=== PATIENT | male | born 1970 | race African-American/Black ===

== ENCOUNTER 2016-11-20 11:57 | Emergency (ER) | payer BC ==
[~2016-11-20] VITALS: Ht 198.1 cm; Wt 154.2 kg
--- NOTE | 2016-11-20 12:53 | ED.ADGEN ---
Past Medical History Past Medical History: High Cholesterol Past Surgical History: No Surgical History Alcohol Use: Occasionally Drug Use: None Adult General Chief Complaint Chief Complaint: NEAR SYNCOPE HPI HPI Patient is a 45 year old man, history of hypercholesterolemia, obesity, who presents to the emergency department with multiple complaints. Patient states that he has been experiencing a right-sided headache over the past several days , and a feeling of "like I need to keep checking" nose and cheek on the right because "to make sure they're still there". Patient denies any facial droop, any slurred speech, any vision changes, any focal weakness in the extremities. 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 He denies any vertiginous type symptoms, any nausea or vomiting, any focal weaknesses stated, any chest pain or shortness of breath , any GI or symptoms. He states this lasted for about 10 minutes, and is now fully resolved. He has been taking ibuprofen daily over the past several days, one dose daily for headache pain. No headache at this time, no other symptoms. Patient denies any recent travel or surgery, and history of DVT or PE, family history of heart disease in his father in his late 50s. His primary care provider is Dr. Ni Hurst. Review of Systems Review of Systems Constitutional: Denies fever or chills. [] Generalized weakness. Eyes: Denies change in visual acuity. [] HENT: Denies nasal congestion or sore throat. [] Respiratory: Denies cough or shortness of breath. [] Cardiovascular: Denies chest pain or edema. [] GI: Denies abdominal pain, nausea, vomiting, bloody stools or diarrhea. [] : Denies dysuria. [] Musculoskeletal: Denies back pain or joint pain. [] Integument: Denies rash. [] Neurologic: Headache, right-sided, along with facial sensory changes. No weakness. Endocrine: Denies polyuria or polydipsia. [] Lymphatic: Denies swollen glands. [] Psychiatric: Denies depression or anxiety. [] Current Medications Current Medications Current Medications Medications (Trade) Dose Ordered Sig/Jen Start Time Stop Time Status Last Admin Dose Admin Sodium Chloride (Iv Sodium Chloride 0.9% 1000ml Bag) 1,000 ml @ 1,000 mls/hr 1X ONCE 11/20/16 13:30 11/20/16 14:29 DC 11/20/16 13:30 1,000 MLS/HR Allergies Allergies Allergies Coded Allergies Type Severity Reaction Last Updated Verified No Known Drug Allergies 11/20/16 No Physical Exam Physical Exam Constitutional: Well developed, well nourished, no acute distress, non-toxic appearance. [] HENT: Normocephalic, atraumatic, bilateral external ears normal, oropharynx moist, no oral exudates, nose normal. [] Eyes: PERRLA, EOMI, conjunctiva normal, no discharge. [] Neck: Normal range of motion, no tenderness, supple, no stridor. [] Cardiovascular:Heart rate regular rhythm, no murmur , S1, S2, no rubs or gallops. [] Lungs & Thorax: Bilateral breath sounds clear to auscultation , no wheezing, rhonchi, rales. No chest wall tenderness or crepitus. [] Abdomen: Bowel sounds normal, soft, no tenderness, no rebound, rigidity, no guarding, no masses, no pulsatile masses. [] Skin: Warm, dry, no erythema, no rash. [] Back: No tenderness, no CVA tenderness. [] Extremities: No tenderness, no cyanosis, no clubbing, ROM intact, no edema. [] Neurologic: Alert and oriented X 3, normal motor function, normal sensory function, no focal deficits noted. Patient with normal sensation to light touch , although he states he still feels as though his face is "feeling strange", normal motor function. Psychologic: Affect normal, judgement normal, mood normal. [] Current Patient Data Vital Signs Vital Signs Date Time Temp Pulse Resp B/P Pulse Ox O2 Delivery O2 Flow Rate FiO2 11/20/16 12:20 97.8 87 16 131/66 97 Room Air 97.8 Lab Values Laboratory Tests Test 11/20/16 13:37 11/20/16 14:14 White Blood Count 9.9x10^3/uL (4.0-11.0) Red Blood Count 5.30x10^6/uL (4.30-5.70) Hemoglobin 13.3g/dL (13.0-17.5) Hematocrit 41.4% (39.0-53.0) Mean Corpuscular Volume 78fL (79-100) L Mean Corpuscular Hemoglobin 25pg (25-35) Mean Corpuscular Hemoglobin Concent 32g/dL (31-37) Red Cell Distribution Width 15.7% (11.5-14.5) H Platelet Count 260x10^3/uL (140-400) Neutrophils (%) (Auto) 62% (31-73) Lymphocytes (%) (Auto) 30% (24-48) Monocytes (%) (Auto) 6% (0-9) Eosinophils (%) (Auto) 1% (0-3) Basophils (%) (Auto) 1% (0-3) Neutrophils # (Auto) 6.2x10^3uL (1.8-7.7) Lymphocytes # (Auto) 3.0x10^3/uL (1.0-4.8) Monocytes # (Auto) 0.6x10^3/uL (0.0-1.1) Eosinophils # (Auto) 0.1x10^3/uL (0.0-0.7) Basophils # (Auto) 0.1x10^3/uL (0.0-0.2) Sodium Level 142mmol/L (136-145) Potassium Level 4.0mmol/L (3.5-5.1) Chloride Level 105mmol/L (98-107) Carbon Dioxide Level 31mmol/L (21-32) Anion Gap 6 (6-14) Blood Urea Nitrogen 12mg/dL (8-26) Creatinine 0.9mg/dL (0.7-1.3) Estimated GFR (Cockcroft-Gault) 110.9 BUN/Creatinine Ratio 13 (6-20) Glucose Level 85mg/dL (70-99) Calcium Level 9.5mg/dL (8.5-10.1) Total Bilirubin 0.4mg/dL (0.2-1.0) Aspartate Amino Transferase (AST) 20U/L (15-37) Alanine Aminotransferase (ALT) 34U/L (16-63) Alkaline Phosphatase 72U/L (46-116) Troponin I Quantitative < 0.017ng/mL (0.000-0.055) PE-Aqb-F-Type Natriuretic Peptide 12pg/mL (0-124) Total Protein 8.0g/dL (6.4-8.2) Albumin 3.8g/dL (3.4-5.0) Albumin/Globulin Ratio 0.9 (1.0-1.7) L Urine Collection Type Unknown Urine Color Yellow Urine Clarity Clear Urine pH 7.5 Urine Specific [place] 1.020 Urine Protein Negativemg/dL (NEG-TRACE) Urine Glucose (UA) Negativemg/dL (NEG) Urine Ketones (Stick) Negativemg/dL (NEG) Urine Blood Negative (NEG) Urine Nitrite Negative (NEG) Urine Bilirubin Negative (NEG) Urine Urobilinogen Dipstick 1.0mg/dL (0.2 mg/dL) Urine Leukocyte Esterase Trace (NEG) Urine RBC 0/HPF (0-2) Urine WBC Occ/HPF (0-4) Urine Squamous Epithelial Cells Occ/LPF Urine Bacteria 0/HPF (0-FEW) Urine Mucus Slight/LPF Urine Opiates Screen Neg (NEG) Urine Methadone Screen Neg (NEG) Urine Barbiturates Neg (NEG) Urine Phencyclidine Screen Neg (NEG) Urine Amphetamine/Methamphetamine Neg (NEG) Urine Benzodiazepines Screen Neg (NEG) Urine Cocaine Screen Neg (NEG) Urine Cannabinoids Screen Neg (NEG) Urine Ethyl Alcohol Neg (NEG) Laboratory Tests 11/20/16 13:37 Laboratory Tests 11/20/16 13:37 EKG EKG EC: Sinus rhythm, heart rate 68 bpm, upright axis QTC of 400, ID of 140, QRS of 90, no ST elevations, patient with contour abnormalities noted in the anterior lateral leads, abnormal ECG, does not meet STEMI criteria. As interpreted by me. Radiology/Procedures Radiology/Procedures [] [facility] [address] [place] [address] IMAGING REPORT Signed PATIENT: MELANIE LEGER ACCOUNT: [id number] : 1970 LOCATION: ER AGE: 45 SEX: M EXAM STATUS: PRE ER ORD. PHYSICIAN: RAYSA RAMOS DO REASON: Near-syncope PROCEDURE: PORTABLE CHEST 1V Portable chest, 11/20/2016: History: Dizziness and weakness Comparison is made to a study from 04/05/2006. The heart size and pulmonary vascularity are normal. The lungs are clear. There is no evidence of pleural fluid. IMPRESSION: No acute cardiopulmonary abnormality is detected. DICTATED and SIGNED BY: PRASHANT CALVILLO MD DATE: 11/20/16 1259 CC: RAYSA RAMOS DO ~ Impressions: [facility] [address] [place] [address] IMAGING REPORT Signed PATIENT: MELANIE LEGER ACCOUNT: [id number] : 1970 LOCATION: ER AGE: 45 SEX: M EXAM STATUS: REG ER ORD. PHYSICIAN: RAYSA RAMOS DO REASON: [place]O/weakness PROCEDURE: HEAD WO CONTRAST CT of the head without contrast, 11/20/2016: History: Headache, weakness The ventricles are within normal limits in size. There is no shift of the midline structures. There is no evidence of acute intracranial hemorrhage or mass effect. IMPRESSION: No acute intracranial abnormality is detected PQRS Compliance Statement: One or more of the following individualized dose reduction techniques were utilized for this examination: 1. Automated exposure control 2. Adjustment of the mA and/or kV according to patient size 3. Use of iterative reconstruction technique DICTATED and SIGNED BY: PRASHANT CALVILLO MD DATE: 11/20/16 1323 CC: RAYSA RAMOS DO; ANDREA HURST MD ~ Course & Med Decision Making Course & Med Decision Making Pertinent Labs and Imaging studies reviewed. (See chart for details) Patient well-appearing, denying any symptoms at this time, aside from residual paresthesias in the right side of the nose and cheek, although motor and sensation are intact. Due to headache and neurologic symptoms, CT of the head obtained, along with x-ray of the chest, laboratory studies, and ECG. No concerning abnormalities identified. On reevaluation patient's IV fluids, states he is feeling "100%". I did discuss the findings as above with the patient, we did not identify any concerning cause for his symptoms, however with the paresthesias present, I did recommend follow-up with his primary care provider and neurology for additional evaluation. We also discussed concerning symptoms that prompt return to the emergency department. Patient and at bedside voiced understanding and agreement with this plan. Patient received orthostatics in the ED, without return of dizziness or other concerning symptoms , lying flat blood pressure 129/77, heart rate of 72, oxygen saturation of 90%, seated, patient with blood pressure of 158/90, heart rate 77, oxygen saturation of 98%, and standing, blood pressure of 158/84, heart rate of 84, oxygen saturation of 98%. Patient ambulating without difficulty upon exiting the emergency department with his family, with plan as above. Dragon Disclaimer Dragon Disclaimer This electronic medical record was generated, in whole or in part, using a voice recognition dictation system. Departure Impression: Primary Impression: Facial paresthesia Additional Impression: Dizziness Disposition: 01 HOME, SELF-CARE Condition: IMPROVED Problem Qualifiers RAYSA RAMOS DO Nov 20, 2016 12:53
--- NOTE | 2016-11-20 13:03 | RAD ---
Portable chest, 11/20/2016: History: Dizziness and weakness Comparison is made to a study from 04/05/2006. The heart size and pulmonary vascularity are normal. The lungs are clear. There is no evidence of pleural fluid. IMPRESSION: No acute cardiopulmonary abnormality is detected.
--- NOTE | 2016-11-20 13:04 | EKG ---
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
--- NOTE | 2016-11-20 13:28 | RAD ---
CT of the head without contrast, 11/20/2016: History: Headache, weakness The ventricles are within normal limits in size. There is no shift of the midline structures. There is no evidence of acute intracranial hemorrhage or mass effect. IMPRESSION: No acute intracranial abnormality is detected PQRS Compliance Statement: One or more of the following individualized dose reduction techniques were utilized for this examination: 1. Automated exposure control 2. Adjustment of the mA and/or kV according to patient size 3. Use of iterative reconstruction technique
[2016-11-20] MEDS ORDERED: IV NORMAL SALINE 1000ML BAG 1,000 ML IV ONE (13:30)
[2016-11-20 13:43] LABS: BASO # 0.1 x10^3/uL (0.0-0.2); BASO % 1 % (0-3); EOS % 1 % (0-3); HEMATOCRIT 41.4 % (39.0-53.0); HEMOGLOBIN 13.3 g/dL (13.0-17.5); LYMPH % 30 % (24-48); MEAN CORPUSCULAR HEMOGLOBIN 25 pg (25-35); MEAN CORPUSCULAR HGB CONC 32 g/dL (31-37); MEAN CORPUSCULAR VOLUME 78 fL (79-100); MONO % 6 % (0-9); NEUT % 62 % (31-73); PLATELET COUNT 260 x10^3/uL (140-400); RED CELL DISTRIBUTION WIDTH 15.7 % (11.5-14.5); WHITE BLOOD COUNT 9.9 x10^3/uL (4.0-11.0)
[2016-11-20 13:56] LABS: CALCIUM 9.5 mg/dL (8.5-10.1); CREATININE 0.9 mg/dL (0.7-1.3); GFR 110.9
[2016-11-20 14:02] LABS: ALBUMIN 3.8 g/dL (3.4-5.0); ALBUMIN/GLOBULIN RATIO 0.9 (1.0-1.7); TOTAL BILIRUBIN 0.4 mg/dL (0.2-1.0)
--- NOTE | 2016-11-20 14:06 | EKG ---
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
[2016-11-20 14:34] LABS: BILIRUBIN,URINE NEGATIVE (NEG); GLUCOSE,URINE NEGATIVE (NEG); NITRITE,URINE NEGATIVE (NEG); PH,URINE 7.5; PROTEIN,URINE NEGATIVE (NEG-TRACE)
[2016-11-20 14:45] LABS: BACTERIA,URINE 0 /HPF (0-FEW); RBC,URINE 0 /HPF (0-2); WBC,URINE OCC /HPF (0-4)
[2016-11-20 14:46] LABS: SQUAMOUS EPITHELIAL CELL,UR OCC /LPF
[2016-11-20 15:01] LABS: BARBITURATES NEG (NEG); BENZODIAZEPINES NEG (NEG); CANNABINOIDS NEG (NEG); COCAINE NEG (NEG); METHADONE NEG (NEG); OPIATES NEG (NEG); PHENCYCLIDINE NEG (NEG)
[2016-11-20 15:24] LABS: ETHANOL, URINE NEG (NEG)
[2016-11-20 15:58] VITALS: BP 158/84
== END 2016-11-20 16:06 | disposition home or self-care (01) ==
LOC: ER 11:57
DX: R20.9 Unspecified disturbances of skin sensation (principal); R42 Dizziness and giddiness; R53.1 Weakness; R51 Headache; E78.00 Pure hypercholesterolemia, unspecified; E66.9 Obesity, unspecified; Z68.39 Body mass index [BMI] 39.0-39.9, adult
CPT/HCPCS: 36415; 70450; 71010; 80053; 81001; 83880; 84484; 85027; 87086; 93005; 96360; 96361; 99285; G0481; J7030